=== PATIENT | female | born 1985 | race Caucasian/White ===

== ENCOUNTER 2020-06-27 23:40 | Emergency (ER) | payer OTHER, SELFPAY ==
--- NOTE | 2020-06-27 23:56 | ED_ITS ---
HPI - Psych General Stated Complaint: MANIC EPISODE Time Seen by Provider: 06/27/20 23:55 Source: patient and EMS History of Present Illness HPI Narrative: 34-year-old female with history bipolar and schizophrenia. States has been hearing voices for the past couple of days as well as seeing ghost. Patient states that voices are telling her to overdose on heroin even though she knows she is not. She does admit to heroin and cocaine abuse. Denies plan for suicide. Denies nausea vomiting diarrhea or abdominal pain. Denies homicidal ideations Related Data Allergies Allergy/AdvReac Type Severity Reaction Status Date / Time bee pollen [Bee Stings] Allergy Unknown unknown Unverified 04/20/20 17:05 Seafood Allergy Unknown unknown Uncoded 04/20/20 17:05 Review of Systems Review of Systems: Constitutional : No Weight loss, No Fever, No Chills, No Night Sweats, No Fatigue, No Malaise ENT/Mouth : No Hearing loss, No Ear Pain, No Nasal Congestion, No Sinus Pain, No Hoarseness, No sore throat, No Rhinorrhea, No Swallowing Difficulty Eyes: No Eye Pain, No Swelling, No Redness, No Foreign Body, No Discharge, No Vision Changes Cardiovascular : No Chest Pain, No SOB, No Dyspnea on Exertion, No Orthopnea, No Edema, No Palpitations Respiratory : No Cough, No Sputum, No Wheezing, No Smoke Exposure, No Dyspnea Gastrointestinal : No Nausea, No Vomiting, No Diarrhea, No Constipation, No abdominal Pain, No Hematochezia, No Melena Genitourinary : no irregular bleeding, No Dysuria, No Urinary Frequency, No H ematuria, No Urinary Incontinence, No Urgency, No Flank Pain, No Urinary Flow Changes, No Hesitancy Musculoskeletal : No joint pain, No Myalgias, No Joint Swelling Skin : No Skin Lesions, No rash Neuro : No Weakness, No Numbness, No Paresthesias, No Loss of Consciousness, No Dizziness, No Headache Psych : No Anxiety/Panic, No Depression, positive for auditory hallucinations Heme/Lymph: No Bruising, No Bleeding,No Lymphadenopathy Endocrine : No Polyuria, No Polydipsia, No Temperature Intolerance PMFSH Past Medical History Medical History (Updated 06/28/20 @ 00:00 by Ghassan Del Valle DO) Bipolar 1 disorder Family History Family History (Updated 06/27/20 @ 23:59 by Ghassan Del Valle DO) Other Family history non-contributory Social History Social History (Updated 06/27/20 @ 23:59 by Ghassan Del Valle DO) Use of substances other than those prescribed or required for medical reasons: Yes Substance Use Type: Crack/Cocaine Physical Exam Vital Signs: Appearance: Alert. Oriented X3. No acute distress. Eyes: Pupils equal, round and reactive to light. ENT: Pharynx normal. Neck: Normal inspection. Neck supple. No lymph nodes noted. No crepitus CVS: Normal heart rate and rhythm. Pulses normal. Normal S1 and S2 Respiratory: No respiratory distress. Breath sounds normal. No Wheezing. No rales Abdomen: Soft and nontender. No rigidity. No distention. good BS x4 Skin: Skin warm and dry. Normal skin color. Normal skin turgor. Extremities: No lower extremity edema. Neurovascular intact to all extremities. No Lacerations. No Rash Neuro: Oriented X 3. No motor deficit. No sensory deficit. Moving all extermities. No slurred speech. Course Course Course Narrative: 34-year-old female clear for BPH and evaluation MDM - Psych Restraints Face to Face Assessment: Face to Face Assessment: Current Situation: After assessment of the patient, a review of the pertinent medical record and a discussion with nursing staff, I feel the patient requires a restrain intervention. Reaction To: [] Medical Condition: [] Behavioral State: [] Continued Need: [] Discharge Plan Discharge Clinical Impression: Bipolar 1 disorder
[2020-06-28 00:13] VITALS: BP 108/54; BP 132/78; PULSE 88; PULSE 90; RESP 20; TEMP 36.4; O2SAT 98; BMI 20.9
[2020-06-28 00:38] LABS: Basophils Absolute Auto 0.1 X10*3/uL (0.0-0.2); Basophils Percent Auto 1.2 % (0-2); Eosinophils Absolute Auto 0.2 X10*3/uL (0.0-0.4); Hematocrit 35.2 % (37-47); Hemoglobin 11.9 g/dl (12.0-16.0); Lymphocytes Absolute Auto 2.6 X10*3/uL (1.2-4.9); Lymphocytes Percent Auto 42.4 % (20-40); Mean Corpuscular HGB Conc 33.8 g/dl (31.0-35.0); Mean Corpuscular Hemoglobin 31.9 pg (27.0-33.0); Mean Corpuscular Volume 94.4 fL (80-98); Mean Platelet Volume 9.6 fL (9.4-12.3); Monocytes Absolute Auto 0.5 X10*3/uL (0.1-1.2); Monocytes Percent Auto 8.7 % (2-11); Neutrophils Absolute Auto 2.6 X10*3/uL (2.0-8.3); Neutrophils Percent Auto 43.7 % (45-73); Platelet Count 201 X10*3/uL (160-400); Red Blood Count 3.73 X10*6/uL (4.20-5.50); Red Cell Distribution Width 12.1 % (11.0-16.0)
[2020-06-28 00:39] LABS: MANUAL DIFF FLAG NO
[2020-06-28 01:11] LABS: Alanine Aminotransferase 22 U/L (0-31); Albumin Level 3.8 g/dL (3.5-5.0); Alkaline Phosphatase 78 U/L (39-117); Anion Gap 12 (12-20); Aspartate Amino Transferase 26 U/L (5-31); Bilirubin Direct 0.2 mg/dL (0.0-0.5); Bilirubin Total 0.2 mg/dL (0.0-1.0); Blood Urea Nitrogen 18 mg/dL (9-16); Calcium 8.5 mg/dL (8.4-10.2); Carbon Dioxide 28 mmol/L (22-29); Chloride 99 mmol/L (96-108); Creatinine Clr Calc Pharmacy 83.5; Estimated Glomerular Filt Rate > 60; Glucose Random 117 mg/dL (60-115); Sodium 135 mmol/L (135-145); Total Protein 6.9 g/dL (6.5-8.0)
--- NOTE | 2020-06-28 01:33 | PC.NURSE ---
FAXED & CALLED, PER N WILL BE SEEN IN THE AM
[2020-06-28 02:31] VITALS: BP 104/57; PULSE 68; RESP 18; TEMP 36.6; O2SAT 97
[2020-06-28 04:00] VITALS: BP 100/60; PULSE 62; O2SAT 97
[2020-06-28 06:11] VITALS: BP 112/48; PULSE 69; RESP 18; TEMP 36.6; O2SAT 98
[2020-06-28 08:00] VITALS: PULSE 72; RESP 14; O2SAT 100
[2020-06-28 10:55] VITALS: BP 107/67; PULSE 75; RESP 16; O2SAT 96
--- NOTE | 2020-06-28 11:20 | PC.NURSE ---
pt given 2 bus passes when d/c'd home.
== END 2020-06-28 11:42 | disposition home or self-care (01) ==
PROVIDERS: Emergency Provider Emergency Medicine
DX: F30.2 Manic episode, severe with psychotic symptoms (principal); F11.10 Opioid abuse, uncomplicated; F14.10 Cocaine abuse, uncomplicated; Z71.51 Drug abuse counseling and surveillance of drug abuser
CPT/HCPCS: 36415; 80048; 80076; 85025; 99284; 99285

== ENCOUNTER 2020-09-21 17:39 | Emergency (ER) | payer OTHER, SELFPAY ==
[2020-09-21 17:51] VITALS: BP 106/79; PULSE 90; RESP 18; TEMP 36.8; O2SAT 100; BMI 19.5
[2020-09-21 18:23] VITALS: BP 107/67; PULSE 65; RESP 18; TEMP 36.8; O2SAT 99
[2020-09-21] MEDS: LORazepam 1 MG TABLET PO (19:01)
--- NOTE | 2020-09-21 19:02 | PC.NURSE ---
patient refusing all labs, nasal swab, provider notified, pt did however finally agree to po ativan.
--- NOTE | 2020-09-21 19:44 | ED_ITS ---
HPI - Psych General Chief Complaint: Psychiatric Symptoms Stated Complaint: CRISIS Time Seen by Provider: 09/21/20 18:23 Source: patient Mode of arrival: ambulatory Limitations: other (Auditory and visual hallucination) History of Present Illness HPI Narrative: 34-year-old female with a past medical history of bipolar, schizophrenia and polysubstance usage presenting to the ED with complaints of auditory and visual hallucinations over the past few days worse today. Reports that she is seen mass murders performer is a outside of her window therefore she is really scared to even live at home or go outside. Reports that she used to use heroin/crack and cocaine although has been in remission for that. Admits to using methamphetamine a few days ago. Reports that she also drink last night although is not specific on how many drinks. Denies any SI/HI or thoughts of self injury. MD complaint: hallucinations Onset (ago): day(s) (today) Duration: constant History of same: Yes Relieving factors: none Context: recent alcohol abuse and recent drug abuse Associated psychiatric symptoms: auditory hallucinations, visual hallucinations and delusions Associated symptoms: denies other symptoms Treatments prior to arrival: none Related Data Allergies Allergy/AdvReac Type Severity Reaction Status Date / Time bee pollen [Bee Stings] Allergy Unknown unknown Verified 06/28/20 00:20 Seafood Allergy Unknown unknown Uncoded 04/20/20 17:05 Review of Systems Review of Systems: Constitutional : No Fever, No Chills ENT/Mouth : No Ear Pain, No Nasal Congestion, No sore throat Eyes: No Eye Pain, No Swelling, No Redness Cardiovascular : No Chest Pain, No SOB Respiratory : No Cough, No Sputum, No Dyspnea Gastrointestinal : No ingestions, No Nausea, No Vomiting, No Diarrhea, No Hematochezia, No Melena Genitourinary : No Dysuria, No Urinary Frequency, No Hematuria Musculoskeletal : No Myalgias Skin : No Skin Lesions, No rash Neuro : No Weakness, No Numbness, No Paresthesias, No Dizziness, No Headache Psych : + Anxiety, + Depression, + AVH, No SI, No No thoughts of self injury, No HI Heme/Lymph: No Lymphadenopathy Endocrine : No Polyuria, No Polydipsia Yes all other systems are reviewed and are negative PMFSH Past Medical History Attestation statement: The following information was validated with the patient. Medical History Bipolar 1 disorder Family History Family History Other Family history non-contributory Social History Social History Alcohol intake: current Smoking Status: Current every day smoker Use of substances other than those prescribed or required for medical reasons: Yes Substance Use Type: Crack/Cocaine Advance Directives: No Advance Directives Information Provided: Yes Physical Exam Vital Signs: Vital Signs: Last Vital Signs Temp 98.3 F 09/21/20 18:23 Pulse 65 09/21/20 18:23 Resp 18 09/21/20 18:23 BP 107/67 09/21/20 18:23 Pulse Ox 99 09/21/20 18:23 Body Mass Index 19.5 vital signs have been reviewed as normal and appeared to be correct. Blood pressure normal. Heart rate normal. Respiration rate normal. Temperature normal. Oxygen saturation normal. Appearance: Alert. Oriented X3. Although responding to internal stimuli throughout exam otherwise No acute distress. Head: Normal external exam. Normocephalic. Atraumatic. No [place]an signs noted. No raccoon eyes noted Eyes: PERRLA. EOMI. Conjunctiva and sclera normal. Eyelids normal. ENT: Pharynx normal. Uvula midline. Moist mucous membranes. No trismus noted. No drooling noted. No muffled voice noted. Neck: Normal inspection. Neck supple. FROM. No adenopathy. Thyroid Normal. No meningeal signs. No neck mass noted. CVS: Normal heart rate and rhythm. Heart sound normal. No murmurs noted. Pulses normal throughout. Respiratory: No respiratory distress. Painless inspiration. Breath sounds normal. No wheezes/rales/rhonchi noted. Chest nontender. No accessory muscle usage noted or decreased air movement noted. Abdomen: Soft and nontender. Bowel sounds normal in all 4 quadrants. No distention noted. No organomegaly noted. No visible injury noted. Back: No CVA tenderness. Full range of motion noted. Skin: Skin warm and dry. Normal skin color. Normal skin turgor. No rashes/lesions/lacerations noted. Extremities: No lower extremity edema. Extremities exhibit normal range of motion. Extremities nontender. Neuro: Oriented X 3. No motor deficit. No sensory deficit. Reflexes normal. Psych: Appearance grossly normal, well-kept, mental status normal, movement normal, speech is clear but pressured. Is cooperative. abnormal thought process. abnormal thought content. Does not have good insight. Judgment is poor. Course Course Course Narrative: 18:40pm - 34-year-old female with a past medical history of bipolar, schizophrenia and polysubstance usage presenting to the ED with complaints of auditory and visual hallucinations over the past few days worse today. - on exam patient is having auditory and visual hallucinations otherwise is alert and oriented x3. Not in any acute distress. Vital signs are stable within normal limits. Nontoxic appearing. No signs of dehydration. - will obtain labs, provide 1 mg of Ativan and put a p.r.n. order for q.6 hours and obtain a BHN evaluation and re-evaluate Reevaluation(s) Reevaluation #1: - patient is refusing all labs although took the Ativan. - awaiting BHN evaluation. Time: 20:01 [facility] - Psych Medical Records Attestation: I reviewed the patient's medical records. Lab Data Attestation: I reviewed the patient's lab results. Discharge Plan Discharge Clinical Impression: Bipolar 1 disorder, Schizophrenia, Auditory hallucination, Hallucination, visual
[2020-09-21 20:00] VITALS: BP 128/65; PULSE 58; RESP 16; TEMP 36.8; O2SAT 99
--- NOTE | 2020-09-21 20:37 | PC.NURSE ---
pt brought to pod
[2020-09-21 21:40] VITALS: BP 131/74; PULSE 64; RESP 16; TEMP 36.9; O2SAT 98
--- NOTE | 2020-09-21 21:53 | PC.NURSE ---
PATIENT WAS MOVED TO THE POD FROM THE MAIN ED AND CONTINUES TO REFUSE TO GIVE BLOOD AND URINE SAMPLES AND IS UNCOOPERATIVE FOR VITALS. PT REPORTS BACK PAIN AND WANTS ONLY TO SLEEP AND TO TALK WITH BHN.
--- NOTE | 2020-09-21 22:01 | PC.NURSE ---
DAY called spoke with Luis confirmed receipt of referral, clinician ETA is overnight, patient continues to refused medication and lab draws, will continue to monitor.
[2020-09-22] VITALS (7 sets, daily range): BP systolic 102; BP diastolic 47; PULSE 94; RESP 17–20; O2SAT 98
[2020-09-22 02:02] LABS: COVID-19 Test Negative (Negative)
--- NOTE | 2020-09-22 02:07 | PC.NURSE ---
Patient assessed by DAY, disposition [facility] in the morning, refused her labs draw, compliant with covid swab/pending results, will continue to monitor.
--- NOTE | 2020-09-22 07:19 | PC.NURSE ---
Report received from ELIAS Alford. Pt resting, resp unlabored.
--- NOTE | 2020-09-22 09:21 | PC.NURSE ---
Pharmacy called re: medication reconciliation.
--- NOTE | 2020-09-22 10:23 | PC.NURSE ---
Pt awake, alert. aware that she is awaiitng [facility], and may go to respite- no concerns reported. Asking re: suboxone- pharmacy verified medications, provider notified.
--- NOTE | 2020-09-22 11:20 | PC.NURSE ---
Pt evaluated by DAY
[2020-09-22] MEDS: OXcarbazepine 300 MG TABLET 600 MG PO (11:42)
[2020-09-22] MEDS: risperiDONE 2 MG TABLET 4 MG PO (11:43)
[2020-09-22] MEDS: Benztropine Mesylate 1 MG TABLET PO ×2 (11:43→20:10)
[2020-09-22] MEDS: Buprenorphine/Naloxone 8/2 mg FILM 1 FILM SUBLINGUAL (11:44)
--- NOTE | 2020-09-22 12:55 | PC.NURSE ---
Pt notified that she will be staying to wait for an inpatient bed. [address] Pt unhappy, prefers to go to respite where it is 'quieter and I can go out to smoke.'
--- NOTE | 2020-09-22 13:39 | PC.NURSE ---
Pt awake, responding to internal stimuli, paranoid - requesting prn
[2020-09-22] MEDS: LORazepam 1 MG TABLET PO ×2 (13:44→20:10)
[2020-09-22] MEDS: Nicotine Polacrilex 2 MG GUM BUCCAL (13:45)
[2020-09-22] MEDS: HaloperidoL 5 MG TABLET PO (13:59)
[2020-09-22 14:21] LABS: Glucose Urine UA NEG (NEG); Leukocyte Esterase Urine 1+ (NEG); Nitrite Urine NEG (NEG); PH 6.5 (5.0-8.0); UACC Culture Trigger YES; Urine Blood NEG (NEG); Urine Ketones NEG (NEG); Urine Protein NEG (NEG-TRACE)
[2020-09-22 14:24] LABS: Appearance Urine HAZY; Color Urine YELLOW
--- NOTE | 2020-09-22 14:28 | PC.NURSE ---
Pt medicated for agitation as requested by pt. Pt angry that she is staying in ED. Requested Haldol for agitation. Pt states she has been 'kidnapped' pt appears to be responding to internal stimuli and at times, seems disorganized, then anxious, asking whether she is a 'ghost,' asking if the tv is 'real.'
[2020-09-22 14:31] LABS: Amorphous Sediment Urine 2+ /LPF; Bacteria Urine TRACE /LPF; RBC Urine 0 /HPF (0); Squamous Epithelial Cell Urine 3+ /LPF
[2020-09-22 14:33] LABS: UPreg QC Valid YES; Urine Pregnancy NEGATIVE (NEGATIVE)
[2020-09-22 14:39] LABS: Amphetamine Screen Urine POSITIVE (Not Detect); Barbiturates, Urine Not Detected (Not Detect); Benzodiazepines Screen Urine Not Detected (Not Detect); Cannabinoid Screen Urine POSITIVE (Not Detect); Cocaine Screen Urine POSITIVE (Not Detect); Opiate Screen Urine Not Detected (Not Detect); Phencyclidine Screen Urine Not Detected (Not Detect)
--- NOTE | 2020-09-22 15:17 | PC.NURSE ---
Pt sat w/ staff for several minutes, requesting to talk. Pt states that she has this recurring image of a demon harming her every time she shuts her eyes. Pt also reports recurring fear that her biological mother has and she doesn't know. After talking w/ staff pt became less agitated and is currently resting in room.
--- NOTE | 2020-09-22 17:16 | MHC.CARE ---
CARE Amos coordinates getting weighted blanket for pt at her request. Pt also requests to speak with CARE Team. Pt states that she wants to be discharged and does not agree that she should be held here on section 12 since she initially self presented to the ED. CARE Team provides education regarding section 12 and mental status updates with BHN. organic lab worker provides validation, empathic response and support to patient in identifying strategies to cope with feelings of frustration and anxiety. Pt vocalized understanding of the plan to remain in the ED overnight for MSU in the morning, despite not being in agreement with plan, pt is calm and cooperative. CARE Team is available to provide therapeutic support as needed.
--- NOTE | 2020-09-22 17:31 | PC.NURSE ---
Late entry: care team in to speak to pt. Brought weighted blanket, pt briefly used. Now awake, anxious, requesting PRN.
[2020-09-22] MEDS: hydrOXYzine HCL 50 MG TABLET PO (17:34)
--- NOTE | 2020-09-22 19:04 | PC.NURSE ---
Report received. PT is laying quietly in bed. Calm and cooperative. PT is inpatient bed search.
[2020-09-22] MEDS: traZODone HCL 100 MG TABLET PO (20:10)
[2020-09-22] MEDS: LORazepam 0.5 MG TABLET PO (20:10)
[2020-09-23 06:59] VITALS: BP 98/55; PULSE 53; RESP 16; TEMP 36.2; O2SAT 96
--- NOTE | 2020-09-23 07:16 | PC.NURSE ---
Report received. PT currently sleeping respirations even and unlabored, in no apparent distress. Pt inpatient bedsearch.
[2020-09-23 09:00] VITALS: PULSE 57; RESP 16; O2SAT 99
[2020-09-23] MEDS: Benztropine Mesylate 1 MG TABLET PO ×2 (09:02→20:46)
[2020-09-23] MEDS: LORazepam 0.5 MG TABLET PO ×2 (09:02→20:46)
[2020-09-23] MEDS: risperiDONE 2 MG TABLET 4 MG PO (09:03)
[2020-09-23] MEDS: OXcarbazepine 300 MG TABLET 600 MG PO (09:03)
[2020-09-23] MEDS: Buprenorphine/Naloxone 8/2 mg FILM 1 FILM SUBLINGUAL (09:42)
--- NOTE | 2020-09-23 11:31 | PC.NURSE ---
BHN at bedside for re-eval.
--- NOTE | 2020-09-23 11:55 | PC.NURSE ---
Pt irritable, asking to leave. PT redirected. Currently sleeping.
[2020-09-23 17:29] VITALS: BP 104/44; PULSE 53; RESP 20; TEMP 36.4; O2SAT 98
--- NOTE | 2020-09-23 19:46 | PC.NURSE ---
Report received. PT is resting in bed quietly. Calm and cooperative, but asking to speak with BHN so she can go home. PT is inpatient bed search.
[2020-09-23] MEDS: traZODone HCL 100 MG TABLET PO (20:46)
[2020-09-24 00:26] VITALS: BP 99/63; PULSE 57; RESP 16; TEMP 36.7; O2SAT 97
[2020-09-24 06:00] VITALS: RESP 16
--- NOTE | 2020-09-24 07:14 | PC.NURSE ---
Report received. PT currently sleeping, respirations even and unlabored, in no apparent distress. Pt is inpatient bedsearch.
[2020-09-24 09:39] VITALS: BP 95/58; PULSE 68; RESP 18; TEMP 37.1; O2SAT 97
[2020-09-24] MEDS: risperiDONE 2 MG TABLET 4 MG PO (09:59)
[2020-09-24] MEDS: Buprenorphine/Naloxone 8/2 mg FILM 1 FILM SUBLINGUAL (10:00)
[2020-09-24] MEDS: OXcarbazepine 300 MG TABLET 600 MG PO (10:00)
[2020-09-24] MEDS: Benztropine Mesylate 1 MG TABLET PO ×2 (10:00→20:36)
[2020-09-24] MEDS: Nicotine Polacrilex 2 MG GUM BUCCAL (12:29)
--- NOTE | 2020-09-24 14:04 | PC.NURSE ---
PT resting, calm and cooperative. Pt pleasant in conversation, asking when she can leave. Plan of care explained. Pt accepted information and requested to be woken up when BHN arrives.
[2020-09-24 14:45] VITALS: BP 99/42; PULSE 58; RESP 18; TEMP 37.1; O2SAT 95
[2020-09-24] MEDS: LORazepam 1 MG TABLET PO (15:56)
--- NOTE | 2020-09-24 15:57 | PC.NURSE ---
PT frustrated, asking when BHN will be here for re-eval. Delores explained, pt requested medication for anxiety, PT medicated per EMAR.
--- NOTE | 2020-09-24 20:32 | PC.NURSE ---
bhn contacted for eta regarding reeval. per bhn work potentially on overnight.
[2020-09-24] MEDS: LORazepam 0.5 MG TABLET PO (20:35)
[2020-09-24] MEDS: traZODone HCL 100 MG TABLET PO (20:36)
[2020-09-24 20:47] VITALS: BP 110/47; PULSE 60; RESP 20; TEMP 36.5; O2SAT 98
[2020-09-24 22:00] VITALS: RESP 16
--- NOTE | 2020-09-25 00:38 | PC.NURSE ---
contact made to n, plan to be seen tonight.
--- NOTE | 2020-09-25 02:20 | PC.NURSE ---
plan to remain section 12 at this time.
--- NOTE | 2020-09-25 02:45 | PC.NURSE ---
pt updated on 12 status by n clinician
[2020-09-25 06:00] VITALS: RESP 18
--- NOTE | 2020-09-25 06:15 | PC.NURSE ---
pt ambulated to bathroom without difficulty. patietn refused 6am vs. i just want to be left alone . pt's affect appears to be subdued.
--- NOTE | 2020-09-25 07:41 | PC.NURSE ---
Report received from ELIAS Andrews. Pt awake, anxious, reports that she has pain LLQ which began this morning. Abd soft, states last moved bowels 2 days ago.
--- NOTE | 2020-09-25 08:11 | PC.NURSE ---
Pt resting in room, no further report of pain- INKITA Riley aware of pt report of abd pain previously.
--- NOTE | 2020-09-25 08:13 | PC.NURSE ---
Provider in to evaluate.
--- NOTE | 2020-09-25 09:29 | PC.NURSE ---
Pt resting, resp unlabored.
[2020-09-25] MEDS: Docusate Sodium 100 MG CAPSULE PO ×2 (10:36→20:06)
[2020-09-25] MEDS: risperiDONE 2 MG TABLET 4 MG PO (10:36)
[2020-09-25] MEDS: OXcarbazepine 300 MG TABLET 600 MG PO (10:37)
[2020-09-25] MEDS: LORazepam 0.5 MG TABLET PO ×2 (10:37→20:06)
[2020-09-25] MEDS: Benztropine Mesylate 1 MG TABLET PO ×2 (10:37→20:06)
[2020-09-25] MEDS: Buprenorphine/Naloxone 8/2 mg FILM 1 FILM SUBLINGUAL (10:38)
[2020-09-25] MEDS: LORazepam 1 MG TABLET PO (11:49)
[2020-09-25] MEDS: HaloperidoL 5 MG TABLET PO (11:53)
--- NOTE | 2020-09-25 12:16 | PC.NURSE ---
Pt resting, denies any further abdominal pain. CARE team contacted re: placement.
[2020-09-25 14:00] VITALS: RESP 18
--- NOTE | 2020-09-25 15:32 | PC.NURSE ---
Psych consult unable to arrive until tomorrow. Pt disappointed that she is still in ED, awaiting BHN re-evaluation. Currently resting in room.
--- NOTE | 2020-09-25 17:05 | PC.NURSE ---
Pt awake- BHN called re: MSU- state that pt was evaluated at 0100 this morning and will not be seen until tomorrow. Pt aware, frustrated, but maintaining behavioral control.
--- NOTE | 2020-09-25 18:09 | PC.NURSE ---
Pt ate dinner, maintaining behavioral control despite frustration.
[2020-09-25] MEDS: traZODone HCL 100 MG TABLET PO (20:06)
--- NOTE | 2020-09-25 20:43 | PC.NURSE ---
Patient seems frustrated for being over 5 days in ED, called [facility] spoke with Megan and updated patient status, Megan told me patient will be reevaluated in the night, patient compliant with her HS PO medication, currently in her room watching TV, denied distress, will continue to monitor.
--- NOTE | 2020-09-26 07:18 | PC.NURSE ---
Report received from ELIAS Alford. Pt resting, resp unlabored.
[2020-09-26] MEDS: Benztropine Mesylate 1 MG TABLET PO (08:57)
[2020-09-26] MEDS: risperiDONE 2 MG TABLET 4 MG PO (08:57)
[2020-09-26] MEDS: OXcarbazepine 300 MG TABLET 600 MG PO (08:57)
[2020-09-26] MEDS: Docusate Sodium 100 MG CAPSULE PO (08:57)
[2020-09-26] MEDS: LORazepam 0.5 MG TABLET PO (08:58)
[2020-09-26] MEDS: Buprenorphine/Naloxone 8/2 mg FILM 1 FILM SUBLINGUAL (08:58)
--- NOTE | 2020-09-26 09:18 | P.CNPS_ITS ---
History of Present Illness Date of Service: 09/26/2020 Chief Complaint: CRISIS Reason for Consult: disposition eval Requesting physician: Angie Cedillo Discussed with referring provider: Yes Sources of Information: patient interviewed and chart reviewed HPI Narrative: Patient is a 34 year old female with dx of shizoaffective disorder and OUD. Presented to the ED late last week reporting auditory and visual hallucinations. UDS + for amphetamines, marijuana and cocaine. Per RN and documentation, patient has been in behavioral control, denying AH/VH and asking for PRN medications appropriately. Patient requesting to be discharged. Patient seen in area of ED, in room 4. Initially asleep, though woke easily for interview with this freelance writer. Patient reports frustration at being in ED. Denies AH and VH. Acknowledges substance use prior to admission. Past Psychiatric History: history of psychiatric [facility] Medical Evaluation Reviewed: Yes UDS results as noted above other labwork not completed (per documentation, patient declined labs) Review of Systems Review of Systems Yes all other systems are reviewed and are negative Constitutional: Reports as per HPI and Reports no additional constitutional complaints [facility] Medical History Bipolar 1 disorder Diagnostics Vital Signs (24Hr): Vital Signs - 24 hr 09/25/20 14:00 Respiratory Rate 18 Body Mass Index 19.5 Mental Status Exam Mental Status Exam Patient Appearance: Appropriate Patient Orientation: Person, Place, Time and Situation Level of Consciousness: Awake and Appropriate Patient Behavior: Appropriate Mood Description: Calm and Appropriate Affect Description: Appropriate Ability to Follow Directions: Excellent Speech Pattern: Clear and Appropriate Hallucinations: None Delusions: Not Present Thought Process: Goal Oriented Thought Content: positive for Intact Depressive Symptoms: Increased Anxiety Judgement: Fair Medications Medications Current Medications Generic Name Dose Route Start Last Admin Trade Name Freq PRN Reason Stop Dose Admin Benztropine Mesylate 1 mg 09/22/20 21:00 09/26/20 08:57 Benztropine Mesylate 1 Mg Tablet PO 1 mg BID COLLINS Administration Buprenorphine/Naloxone 1 film 09/23/20 09:00 09/26/20 08:58 Buprenorphine/Naloxone 8/2 Mg Film SUBLINGUAL 1 film DAILY COLLINS Administration Docusate Sodium 100 mg 09/25/20 09:00 09/26/20 08:57 Docusate Sodium 100 Mg Capsule PO 100 mg BID COLLINS Administration Hydroxyzine HCl 50 mg 09/22/20 10:55 09/22/20 17:34 Hydroxyzine Hcl 50 Mg Tablet PO 50 mg DAILY PRN Administration anxiety Lorazepam 1 mg 09/21/20 18:33 09/25/20 11:49 Lorazepam 1 Mg Tablet PO 1 mg Q6H PRN Administration anxiety Lorazepam 0.5 mg 09/22/20 21:00 09/26/20 08:58 Lorazepam 0.5 Mg Tablet PO 0.5 mg BID COLLINS Administration Nicotine Polacrilex 2 mg 09/22/20 13:40 09/24/20 12:29 Nicotine Polacrilex 2 Mg Gum BUCCAL 2 mg QID PRN Administration Nicotine Cravings Oxcarbazepine 600 mg 09/22/20 11:00 09/26/20 08:57 Oxcarbazepine 300 Mg Tablet PO 600 mg DAILY COLLINS Administration Paliperidone Palmitate 234 mg 09/22/20 11:00 Paliperidone Palmitate 234 Mg/1.5 Ml Syringe IM Q28D COLLINS Risperidone 4 mg 09/22/20 11:00 09/26/20 08:57 Risperidone 2 Mg Tablet PO 4 mg DAILY COLLINS Administration Trazodone HCl 100 mg 09/22/20 21:00 09/25/20 20:06 Trazodone Hcl 100 Mg Tablet PO 100 mg BEDTIME COLLINS Administration Allergies Allergies Allergy/AdvReac Type Severity Reaction Status Date / Time bee pollen [Bee Stings] Allergy Unknown unknown Verified 06/28/20 00:20 Seafood Allergy Unknown unknown Uncoded 04/20/20 17:05 Assessment & Plan Assessment & Plan (1) Schizoaffective disorder: Status: Acute Code(s): F25.9 - Schizoaffective disorder, unspecified Recommendations: * no medication recommendations at this time * patient no longer experiencing AH or VH, these sx were likely secondary to substance use * based on patient interview, collateral from RN in ED and documentation, patient does not seem appropriate for psychiatric admission Greater than 50% of the session was spent on counseling and/or coordination of care
--- NOTE | 2020-09-26 09:20 | PC.NURSE ---
Pt currently resting- awakened earlier, Jayla Perry in to see, Gage Cedillo in to see. Pt denies SI/AH or VH. Cooperative w/ medications,. pleasant.
--- NOTE | 2020-09-26 11:07 | PC.NURSE ---
Pt awake, alert, pleasant. CARE team contacting [facility] re: dispo. BHN unable to evaluate until later today, care team and provider aware.
--- NOTE | 2020-09-26 11:34 | PC.NURSE ---
CARE team communicated w/ halfway- pt may be discharged home per provider, per report halfway is also in agreement. Pt aware, and pleased w/ dispo.
--- NOTE | 2020-09-26 11:38 | MHC.CARE ---
CARE Team met with patient in 4 this morning to discuss her disposition; she has been boarding in the ED awaiting inpatient psychiatric placement since 09/21/20, requesting discharge to home. Patient denied the previously noted symptoms of visual and auditory hallucination, said she has not had any issues for several day and at no time was she suicidal or homicidal. In addition, she has been in behavioral control and cooperative with her care since arrival. Patient did not display any signs of psychosis, was fully oriented and engaged. Spoke to mine supervisor, Geeta Casas [phone], she reported having no additional concerns and is open to having patient return home this morning, [place] [facility] [place] Provider updated and in agreement with plan to discharge
--- NOTE | 2020-09-26 12:08 | PC.NURSE ---
Pt given discharge instructions and bus pass. Pt affect bright, pt pleased to be discharged, states she is safe to leave.
== END 2020-09-26 12:09 | disposition home or self-care (01) ==
PROVIDERS: Physician Assistant Medical; Emergency Provider Emergency Medicine
DX: F31.64 Bipolar disorder, current episode mixed, severe, with psychotic features (principal); R44.0 Auditory hallucinations; R44.1 Visual hallucinations; R10.32 Left lower quadrant pain; Z20.822 Contact with and (suspected) exposure to COVID-19; F19.90 Other psychoactive substance use, unspecified, uncomplicated; F41.9 Anxiety disorder, unspecified; F17.200 Nicotine dependence, unspecified, uncomplicated; Z79.899 Other long term (current) drug therapy
CPT/HCPCS: 36415; 80307; 81001; 81003; 81025; 87086; 87635; 99285

== ENCOUNTER 2021-09-02 12:13 | Emergency (ER) | payer OTHER, SELFPAY ==
[2021-09-02 12:47] VITALS: BP 167/122; BP 82/51; PULSE 102; PULSE 103; RESP 16; O2SAT 95; O2SAT 96; BMI 24.9
[2021-09-02] MEDS: Naloxone HCl Nasal 4 MG SPRAY NOSTRILALT (13:00)
--- NOTE | 2021-09-02 13:13 | ED_ITS ---
HPI - Psych General Chief Complaint: Psychiatric Symptoms Stated Complaint: CRISIS Time Seen by Provider: 09/02/21 12:32 Source: EMS Mode of arrival: wheelchair Limitations: no limitations History of Present Illness HPI Narrative: this is a 35-year-old female past medical history significant for bipolar disorder, schizophrenia disorder, auditory hallucinations presenting to the emergency department via ambulance it is that police got a call for a well-being check for an individual who was walking [place] who appeared intoxicated. Patient was picked up by EMS and brought into the hospital, EMS reports that a few times in route to the hospital patient was nodding off. Patient appears restless, she is not alert and oriented, she appears to be dozing off during my interview. She is not answering questions appropriately. MD complaint: other (Abnormal behavior ) Onset (ago): day(s) (1) Duration: constant History of same: Yes Relieving factors: none Exacerbating factors: none Associated symptoms: denies other symptoms Treatments prior to arrival: none Related Data Home Medications Medication Instructions Recorded Confirmed benztropine 1 mg tablet 1 tab PO BID 09/22/20 09/22/20 buprenorphine 8 mg-naloxone 2 1 strip SUBLINGUAL DAILY 09/22/20 09/22/20 mg sublingual film (Suboxone) hydroxyzine pamoate 50 mg 1 cap PO DAILY PRN 09/22/20 09/22/20 capsule lorazepam 0.5 mg tablet 1 tab PO BID 09/22/20 09/22/20 oxcarbazepine 300 mg tablet 2 tab PO QAM 09/22/20 09/22/20 (Trileptal) paliperidone palmitate 234 1 syringe IM Q4W 09/22/20 09/22/20 mg/1.5 mL intramuscular syringe (Invega Sustenna) risperidone 4 mg tablet 1 tab PO QAM 09/22/20 09/22/20 trazodone 100 mg tablet 1 tab PO BEDTIME 09/22/20 09/22/20 Previous Rx's Medication Instructions Recorded naloxone 4 mg/actuation nasal 4 mg INTRANASAL Q2M PRN #1 ea 09/02/21 spray (Narcan) Allergies Allergy/AdvReac Type Severity Reaction Status Date / Time bee pollen [Bee Stings] Allergy Unknown unknown Verified 06/28/20 00:20 Seafood Allergy Unknown unknown Uncoded 04/20/20 17:05 Review of Systems Verdana 4l Review of Systems: Verdana 4d Unable to obtain due to Verdana 4d mental status Verdana 4d Yes Unobtainable due to mental status [facility] Past Medical History Attestation statement: The following information was validated with the patient. Source: old records reviewed and nursing notes reviewed Medical History Bipolar 1 disorder Family History Family History Other Family history non-contributory Social History Social History Alcohol intake: current Substance Use Type: Crack/Cocaine Advance Directives: No Advance Directives Information Provided: Yes Patient : No Physical Exam Verdana 4l Vital Signs: Verdana 4d Verdana 4d Vital Signs: Verdana 4d Verdana 4Bd Last Vital Signs Verdana 4d Spindle Plumber New 4d Spindle Plumber New 4d Temp 97.8 F 09/02/21 14:16 Spindle Plumber New 4d Pulse 82 09/02/21 14:16 Spindle Plumber New 4d Resp 14 09/02/21 14:16 BP 113/56 L 09/02/21 14:16 Pulse Ox 98 09/02/21 14:16 BMI result Body Mass Index 24.9 Patient noted to by hypotensive. Appearance: Alert.?Awake. Dozing off during my exam. Appears intoxicated. No acute distress.? Head: Normocephalic, atraumatic, no step-offs or deformities Eyes: Pupils equal, round and reactive to light.?+ pinpoint pupils b/l ENT: Pharynx normal.? Neck: Normal inspection.? Neck supple.? CVS: Normal heart rate and rhythm.? Pulses normal.? Respiratory: No respiratory distress.? Breath sounds normal.? Abdomen: Soft and nontender.? Skin: Skin warm and dry.? Normal skin color.? Normal skin turgor.? Extremities: No lower extremity edema.? No calf ttp. 5/5 strength to bilateral upper and lower extremities Back: No midline tenderness, no C-spine tenderness, full range of motion, no CVA tenderness bilaterally Neuro: awake, alert, responsive to verbal and physical stimulus, appears intoxicated, not answering questions appropriately. Not really following commands. Pacing around room.? No motor deficit.? No sensory deficit. Course Reevaluation(s) Reevaluation #1: Patient reprots to [facility] use of cocaine and heroin. Patient is in a program, [facility] spoke to the oncall Vidya, and Vidya believes that patient is good to go back to program, she can return to her program where she is on [facility] Orders. Significant improvement after narcan. I feel comfortable with plan. Patient wants to return. Time: 15:17 Reevaluation #2: Labs apear to be at baseline. Covid negative. Patient will be DC back to program. No SI or HI patient fells well. Time: 18:48 MDM - Psych MDM Narrative Medical decision making narrative: [id number] 35 yo f pmhx Schizophrenia and bipolar disorder presents to the emergency department for a well-being check, found walking in the middle of the [place], and [place] a bridge. Brought in by ambulance. On my initial examination patient appears agitated, restless, pacing around the room. With pinpoint pupils. Alert, awake to verbal and physical stimuli. Appears to be in no acute distress however she is dozing off during my exam. For this reason Narcan 4 mg intranasal ordered at this time. Will re-evaluate afterwards. Plan at this time is to obtain basic labs, urine, EtOH, COVID and behavioral health consult Medical Records Attestation: I reviewed the patient's medical records. Lab Data Attestation: I reviewed the patient's lab results. Result diagrams: 09/02/21 16:41 09/02/21 16:41 Labs: Lab Results 09/02/21 09/02/21 09/02/21 Range/Units 13:47 16:41 16:41 WBC 10.4 (4.8-10.8) X10*3/uL RBC 3.87 L (4.20-5.50) X10*6/uL Hgb 12.4 (12.0-16.0) g/dl Hct 37.7 (37.0-47.0) % MCV 97.4 (80.0-98.0) fL MCH 32.0 (27.0-33.0) pg MCHC 32.9 (31.0-35.0) g/dl RDW 12.8 (11.0-16.0) % Plt Count 268 (160-400) X10*3/uL MPV 9.4 (9.4-12.3) fL Immature Gran % (Auto) 0.2 (0.0-0.4) % Neut % (Auto) 72.9 (45-73) % Lymph % (Auto) 17.4 L (20-40) % [place] % (Auto) 8.0 (2-11) % Eos % (Auto) 1.1 (0-4) % Baso % (Auto) 0.4 (0-2) % Lymph # (Auto) 1.8 (1.2-4.9) X10*3/uL [place] # (Auto) 0.8 (0.1-1.2) X10*3/uL Eos # (Auto) 0.1 (0.0-0.4) X10*3/uL Baso # (Auto) 0.0 (0.0-0.2) X10*3/uL Abs Immat Gran (auto) 0.02 (0.00-0.03) X10*3/uL Absolute Neuts (auto) 7.6 (2.0-8.3) x10*3/uL Absolute Nucleated RBC 0.000 (0.0-0.012) X10*3/uL Nucleated RBC % (auto) 0.0 (0.0-0.2) /100WBC Sodium 141 (135-145) mmol/L Potassium 3.9 (3.3-5.1) mmol/L Chloride 108 (96-108) mmol/L Carbon Dioxide 26 (22-29) mmol/L Anion Gap 11 L (12-20) BUN 12 (9-16) mg/dL Creatinine 0.85 (0.5-1.4) mg/dL Estim Creat Clear Calc 88.1 Estimated GFR > 60 Random Glucose 102 (60-115) mg/dL Calcium 8.6 (8.4-10.2) mg/dL Total Bilirubin 0.2 (0.0-1.0) mg/dL AST 28 (5-31) U/L ALT 30 (0-31) U/L Alkaline Phosphatase 86 (39-117) U/L Total Protein 6.3 L (6.5-8.0) g/dL Albumin 3.5 (3.5-5.0) g/dL Urine Opiates Screen (Not Detect) Urine Fentanyl Screen (Not Detect) Ur Barbiturates Screen (Not Detect) Ur Phencyclidine Scrn (Not Detect) Ur Amphetamines Screen (Not Detect) U Benzodiazepines Scrn (Not Detect) Urine Cocaine Screen (Not Detect) U Marijuana (THC) Screen (Not Detect) Ethyl Alcohol mg/dL COVID-19 ([facility]) Negative (Negative) COVID-19 Clin Com See Note 09/02/21 09/02/21 Range/Units 16:41 17:42 WBC (4.8-10.8) X10*3/uL RBC (4.20-5.50) X10*6/uL Hgb (12.0-16.0) g/dl Hct (37.0-47.0) % MCV (80.0-98.0) fL MCH (27.0-33.0) pg MCHC (31.0-35.0) g/dl RDW (11.0-16.0) % Plt Count (160-400) X10*3/uL MPV (9.4-12.3) fL Immature Gran % (Auto) (0.0-0.4) % Neut % (Auto) (45-73) % Lymph % (Auto) (20-40) % [place] % (Auto) (2-11) % Eos % (Auto) (0-4) % Baso % (Auto) (0-2) % Lymph # (Auto) (1.2-4.9) X10*3/uL [place] # (Auto) (0.1-1.2) X10*3/uL Eos # (Auto) (0.0-0.4) X10*3/uL Baso # (Auto) (0.0-0.2) X10*3/uL Abs Immat Gran (auto) (0.00-0.03) X10*3/uL Absolute Neuts (auto) (2.0-8.3) x10*3/uL Absolute Nucleated RBC (0.0-0.012) X10*3/uL Nucleated RBC % (auto) (0.0-0.2) /100WBC Sodium (135-145) mmol/L Potassium (3.3-5.1) mmol/L Chloride (96-108) mmol/L Carbon Dioxide (22-29) mmol/L Anion Gap (12-20) BUN (9-16) mg/dL Creatinine (0.5-1.4) mg/dL Estim Creat Clear Calc Estimated GFR Random Glucose (60-115) mg/dL Calcium (8.4-10.2) mg/dL Total Bilirubin (0.0-1.0) mg/dL AST (5-31) U/L ALT (0-31) U/L Alkaline Phosphatase (39-117) U/L Total Protein (6.5-8.0) g/dL Albumin (3.5-5.0) g/dL Urine Opiates Screen POSITIVE H (Not Detect) Urine Fentanyl Screen POSITIVE H (Not Detect) Ur Barbiturates Screen Not Detected (Not Detect) Ur Phencyclidine Scrn Not Detected (Not Detect) Ur Amphetamines Screen Not Detected (Not Detect) U Benzodiazepines Scrn Not Detected (Not Detect) Urine Cocaine Screen POSITIVE H (Not Detect) U Marijuana (THC) Screen Not Detected (Not Detect) Ethyl Alcohol < 10 mg/dL COVID-19 ([facility]) (Negative) COVID-19 Clin Com Critical Care Time Critical Care Time Critical Care Time: No Discharge Plan Discharge Clinical Impression: Schizophrenia, Opiate abuse, episodic Patient Disposition: Home, Self-Care Instructions: Narcotic Use Disorder (ED), Opioid Use Disorder (ED) Additional Instructions: Take your medications as prescribed. If you were prescribed antibiotics today, it is important that you take your medication to their entirety, do not skip any doses, do not finish them early. Follow-up with your primary care provider this week. Return to the emergency department with new or worsening symptoms. In case of emergency call 911 Prescriptions: New naloxone [Narcan] 4 mg/actuation spray,non-aerosol 4 mg intranasal Q2M PRN (Reason: opioid overdose) Qty: 1 0RF Rx Instructions: spray 1 dose into ONE nostril; alternate nostrils w each dose until help arrives No Action risperidone 4 mg tablet 1 tab PO QAM 0RF hydroxyzine pamoate 50 mg capsule 1 cap PO DAILY PRN (Reason: anxiety) 0RF oxcarbazepine [Trileptal] 300 mg tablet 2 tab PO QAM 0RF lorazepam 0.5 mg tablet 1 tab PO BID 0RF trazodone 100 mg tablet 1 tab PO BEDTIME 0RF benztropine 1 mg tablet 1 tab PO BID 0RF Invega Sustenna 234 mg/1.5 mL syringe 1 syringe IM Q4W 0RF buprenorphine-naloxone [Suboxone] 8-2 mg film 1 strip sublingual DAILY 0RF Referrals: Makenzie Mello MD [Primary Care Provider] - 2 days Interventions: ED Discharge Assessment Last Done: 09/02/21 18:37
[2021-09-02 14:16] VITALS: BP 113/56; PULSE 82; RESP 14; TEMP 36.6; O2SAT 98
[2021-09-02 14:30] LABS: COVID-19 Test Negative (Negative)
[2021-09-02 17:02] LABS: MANUAL DIFF FLAG NO
[2021-09-02 17:06] LABS: Basophils Percent Auto 0.4 % (0-2); Eosinophils Absolute Auto 0.1 X10*3/uL (0.0-0.4); Eosinophils Percent Auto 1.1 % (0-4); Hematocrit 37.7 % (37.0-47.0); Hemoglobin 12.4 g/dl (12.0-16.0); Imm Gran Abs Auto 0.02 X10*3/uL (0.00-0.03); Imm Gran Pct Auto 0.2 % (0.0-0.4); Lymphocytes Absolute Auto 1.8 X10*3/uL (1.2-4.9); Lymphocytes Percent Auto 17.4 % (20-40); Mean Corpuscular HGB Conc 32.9 g/dl (31.0-35.0); Mean Corpuscular Volume 97.4 fL (80.0-98.0); Mean Platelet Volume 9.4 fL (9.4-12.3); Monocytes Absolute Auto 0.8 X10*3/uL (0.1-1.2); Neutrophils Absolute Auto 7.6 x10*3/uL (2.0-8.3); Neutrophils Percent Auto 72.9 % (45-73); Platelet Count 268 X10*3/uL (160-400); Red Blood Count 3.87 X10*6/uL (4.20-5.50); Red Cell Distribution Width 12.8 % (11.0-16.0); White Blood Count 10.4 X10*3/uL (4.8-10.8)
[2021-09-02 17:18] LABS: Ethanol < 10 mg/dL
[2021-09-02 17:22] LABS: Alanine Aminotransferase 30 U/L (0-31); Albumin Level 3.5 g/dL (3.5-5.0); Alkaline Phosphatase 86 U/L (39-117); Anion Gap 11 (12-20); Aspartate Amino Transferase 28 U/L (5-31); Bilirubin Total 0.2 mg/dL (0.0-1.0); Blood Urea Nitrogen 12 mg/dL (9-16); Calcium 8.6 mg/dL (8.4-10.2); Carbon Dioxide 26 mmol/L (22-29); Chloride 108 mmol/L (96-108); Creatinine Clr Calc Pharmacy 88.1; Estimated Glomerular Filt Rate > 60; Glucose Random 102 mg/dL (60-115); Potassium 3.9 mmol/L (3.3-5.1); Sodium 141 mmol/L (135-145); Total Protein 6.3 g/dL (6.5-8.0)
[2021-09-02 18:05] LABS: Amphetamine Screen Urine Not Detected (Not Detect); Barbiturates, Urine Not Detected (Not Detect); Benzodiazepines Screen Urine Not Detected (Not Detect); Cannabinoid Screen Urine Not Detected (Not Detect); Cocaine Screen Urine POSITIVE (Not Detect); Fentanyl, urine POSITIVE (Not Detect); Opiate Screen Urine POSITIVE (Not Detect); Phencyclidine Screen Urine Not Detected (Not Detect)
--- NOTE | 2021-09-02 19:28 | PC.NURSE ---
pt discharge before my shift.
== END 2021-09-02 19:32 | disposition home or self-care (01) ==
PROVIDERS: Physician Assistant; Emergency Provider Emergency Medicine; PCP Family Medicine
DX: F25.9 Schizoaffective disorder, unspecified (principal); F33.1 Major depressive disorder, recurrent, moderate; F11.90 Opioid use, unspecified, uncomplicated; Z20.822 Contact with and (suspected) exposure to COVID-19; Z79.899 Other long term (current) drug therapy
CPT/HCPCS: 80053; 80307; 82077; 85025; 87635; 99283